=== PATIENT | male | born 1995 | race Caucasian/White ===

== ENCOUNTER 2017-02-03 19:09 | Emergency (ER) | payer OTHER ==
--- NOTE | 2017-02-03 19:18 | UC ---
Cardiac HPI - HPI Summary HPI Summary: The patient comes in today for: 1. Left sided chest pain: Onset: This morning when he woke up. H Palliative/provocative: Sitting up seemed to help the pain. Quality: Tightness Region: Left chest. Severity: 1-2/10. Sometimes, the pain will go to 5/10. Time: Constant. Associated symptoms: Previous chest pain: 2 weeks (muscle cramp type of muscle) x 35 minutes. He had dinner at the time. He had steak and green beans. He did not have any heartburn at the time. Dyspnea: None. Fever: None. Cocaine use: None. CAD risk: Male/age: (-), HTN: (-), DM: (-), FmHx: (-), Smoker: (-), Previous disease: (-), Cholesterol: (?) * - History of Current Complaint Stated Complaint: CHEST PAIN Time Seen by Provider: 02/03/17 19:12 Hx Obtained From: Patient - Allergy/Home Medications Allergies/Adverse Reactions: Allergies Allergy/AdvReac Type Severity Reaction Status Date / Time No Known Allergies Allergy Verified 02/03/17 19:17 Home Medications: Home Medications NK [No Home Medications Reported] 02/03/17 [History Confirmed 02/03/17] PMH/Surg Hx/FS Hx/Imm Hx Previously Healthy: Yes Endocrine History Of: Denies: Diabetes, Thyroid Disease, Hyperthyroidism, Hypothyroidism, Dyslipidemia Cardiovascular History Of: Denies: Cardiac Disorders, Hypertension, Pacemaker/ICD, Myocardial Infarction , Congestive Heart Failure, Atrial Fibrillation, Deep Vein Thrombosis, Bleeding Disorders Respiratory History Of: Reports: Asthma - When he was young, the asthma was severe. No inhalers x 6 years. Denies: COPD GI/ History Of: Denies: Gastroesophageal Reflux, Ulcer, Gastrointestinal Bleed, Gall Bladder Disease, Kidney Stones, Diverticulitis, Renal Disease, Urosepsis Neurological History Of: Denies: TIA, CVA, Dementia, Seizures, Migraine Psychological History Of: Denies: Anxiety, Depression, Bipolar Disorder, Schizophrenia, Post Traumatic Stress Disorder Cancer History Of: Denies: Lung Cancer, Colorectal Cancer, Breast Cancer, Prostate Cancer, Cervical Cancer Other History Of: Negative For: HIV, Hepatitis B, Hepatitis C, Anticoagulant Therapy - Family History Known Family History: Positive: Hypertension Negative: Cardiac Disease, Diabetes - Social History Occupation: Employed Part-time, Student Alcohol Use: Rare Substance Use Type: None Smoking Status (MU): Never Smoked Tobacco Review of Systems Constitutional: Negative Skin: Negative Eyes: Negative ENT: Negative Respiratory: Negative Cardiovascular: Chest Pain Gastrointestinal: Negative Genitourinary: Negative All Other Systems Reviewed And Are Negative: Yes Physical Exam Triage Information Reviewed: Yes Appearance: Well-Appearing, No Pain Distress, Well-Nourished Vital Signs Reviewed: Yes Eyes: Positive: Conjunctiva Clear ENT: Positive: Hearing grossly normal. Negative: Pharyngeal erythema, Nasal congestion, Nasal drainage, TM bulging, TM dull, TM red, Tonsillar swelling Dental: Negative: Gross Decay/Caries @, Dental Fracture @ Neck: Positive: Supple, Nontender, No Lymphadenopathy. Negative: Nuchal Rigidity Respiratory: Positive: Chest non-tender - Palpation of the left sternal border makes the pain better., Lungs clear, No respiratory distress, No accessory muscle use, Other: - No rubs. Negative: Crackles, Rhonchi, Wheezing Cardiovascular: Positive: RRR, No Murmur, Other: - No rubs. Abdomen Description: Positive: Nontender - But, palpation of the epigastric/LUQ area is associated with the discomfort of the left chest., No Organomegaly, Soft. Negative: Distended, Guarding Musculoskeletal: Positive: Strength Intact, ROM Intact, No Edema Neurological: Positive: Alert, Muscle Tone Normal Psychological: Positive: Age Appropriate Behavior, Consolable Skin: Negative: rashes, breakdown Diagnostics - Laboratory Diagnostic Studies Completed/Ordered: EKG: Rate: 79. Rhythm: Sinus. Ectopy: NOne. Acute changes: inverted T waves in V1 with atrial enlargement. Flat T wave in V2. S wave in I? Inverted T wave in III - Radiology No standard instances Xray Interpretation: No Acute Changes Radiology Interpretation Completed By: Radiologist - Assessment/Plan Course Of Treatment: Patient was told that I could not explain his chest tightness/pain. - Clinical Impression Provider Diagnoses: Chest pain. hypertension - Physician Notifications Discussed Patient Care With: Dr. Salinas at [facility] was notified of this patient at 20:40 Discharge - Discharge Plan Condition: Stable Disposition: HOME Patient Education Materials: Chest Pain (ED) Forms: *School Release Additional Instructions: The patient it going to [facility] ER.
--- NOTE | 2017-02-03 20:06 | RAD ---
INDICATION: Left-sided chest pain. COMPARISON: There are no prior studies available for comparison. TECHNIQUE: Dual-energy PA and lateral views of the chest were obtained. FINDINGS: The heart is within normal limits in size. Mediastinal and hilar contours appear within normal limits. The lungs are clear. No pleural effusion or pneumothorax is seen. IMPRESSION: NO EVIDENCE FOR ACTIVE CARDIOPULMONARY DISEASE.
== END 2017-02-03 20:40 | disposition left against medical advice (07) ==
LOC: UCCORT 19:09
DX: R07.89 Other chest pain (principal); I10 Essential (primary) hypertension
CPT/HCPCS: 71020; 93005; 99202; G0463